=== PATIENT | female | born 1975 | race Caucasian/White ===

== ENCOUNTER 2016-11-13 07:01 | Observation (INO) | payer BC, OTHER ==
--- NOTE | 2016-11-06 17:17 | GHP ---
[f rep st] HISTORY AND PHYSICAL DATE OF ADMISSION: 11/13/2016 ADMITTING DIAGNOSIS: 1. Dysfunctional uterine bleeding. 2. Uterine fibroids. HISTORY OF PRESENT ILLNESS: Patient is a 40-year-old, 3, para 2-0-1-2, who presents with a long history of dysfunctional uterine bleeding. She has had heavy bleeding with clots since May-June of 2016. The patient states her cycles are usually monthly, about 7 days long. Now her cycles are heavier and lasting longer. She does go through a heavy-duty tampon every hour on her heavy days. She has minimal cramping. The patient presented to the office and was seen by the nurse practitioner. The patient had an ultrasound that showed an enlarged uterus at 9 cm with a very small 2 x 3 cm submucosal fibroid, as well as a thickened endometrium at 2 cm. The patient did have an endometrial biopsy which was negative, no hyperplasia or malignancy seen. The patient then saw me on October 23 for a surgical consult. The patient does desire definitive treatment at this time. She has tried medical management in the past, and did not tolerate the side effects. OB HISTORY: In 2007, the patient delivered a viable female infant via C- section. In 2008, she had another and delivered a viable female infant. PERINATAL TECHNICIAN HISTORY: Menarche age 12. Cycles are usually every 28 days x7 days. Denies any exposure to sexually transmitted diseases. Does have a history of abnormal Pap smears and had a LEEP procedure for treatment. PAST MEDICAL HISTORY: Abnormal Pap smears. PAST SURGICAL HISTORY: Breast biopsy 1996, secondary to fibrocystic changes. LEEP procedure. x2. FAMILY HISTORY: Dad with diabetes and hypertension. Maternal grandmother with breast cancer at 85 years of age. Maternal great aunt with breast cancer at age 50. Mother is alive and well. SOCIAL HISTORY: Patient is . Lives with her and their 2 children. She was a smoker and quit smoking in 2006. Denies any illicit drug use. She does drink 6-7 alcoholic beverages per week. She is a tax compliance representative. ALLERGIES: No known drug allergies. MEDICATIONS: None. PHYSICAL EXAMINATION: VITAL SIGNS: On admission, vital signs are stable. Patient is afebrile. GENERAL: The patient is a well-nourished well-developed female, alert, oriented x3. No apparent distress. LUNGS: Clear to auscultation. HEART: Regular rate and rhythm. ABDOMEN: Soft, nontender, nondistended. Active bowel sounds. PELVIC: On bimanual exam, enlarged uterus 8-10 weeks' size, mobile, nontender. Ovaries nontender. No masses palpated. EXTREMITIES: Normal to inspection without calf tenderness or edema. LABORATORY DATA: CBC is pending. ASSESSMENT: Patient is a 40-year-old, 3, para 2-0-1-2 with dysfunctional uterine bleeding and uterine leiomyomata. PLAN: 1. The patient desires definitive treatment at this time. Surgical consents were obtained at preop visit today. Risks, benefits, alternatives were reviewed with the patient including, but not limited to, bleeding, infection, and damage to surrounding organs. The patient is aware of the risks, and wants to proceed with surgery. 2. We discussed the procedure, laparoscopic hysterectomy with removal of bilateral tubes. Discussed the length of the surgery, limitations, n.p.o. status. 3. Antibiotics manager valuation to OR. Patient has no known drug allergies, we will proceed with cefazolin 2 g IV. 4. SCDs for DVT prophylaxis. 5. Surgery is scheduled for 11/13/16 at 0830 am. /[id number]/MODL MTDD
[2016-11-13] MEDS ORDERED: CEFAZOLIN 2 GM/DEXTROSE/100 ML BAG IV ONE (07:44)
[2016-11-13] MEDS ORDERED: LR 1,000 ML IV ONE (07:55)
[2016-11-13] MEDS ORDERED: LIDOCAINE 1% 5 ML SDV ID PRN (07:55)
[2016-11-13] MEDS ORDERED: ceFAZolin 2 GM/DEXTROSE 100 ML IV ONE (08:00)
[2016-11-13] MEDS ORDERED: PROPOFOL/EMULSION 500 MG/50 ML BOTTLE IV ONE ×3 (08:27→10:51)
[2016-11-13] MEDS ORDERED: fentaNYL 100 MCG/2 ML INJ ONE ×3 (08:29→11:38)
[2016-11-13] MEDS ORDERED: BUPIVACAINE/EPI 0.5% 30 ML SDV ONE (08:32)
[2016-11-13] MEDS ORDERED: MIDAZOLAM 2 MG/2 ML VIAL ONE (08:54)
[2016-11-13] MEDS ORDERED: SKIN ADHESIVE (DERMABOND) 1 EACH TP ONE (11:15)
[2016-11-13] MEDS ORDERED: ONDANSETRON 4 MG/2 ML VIAL IVP PRN (11:33)
[2016-11-13] MEDS ORDERED: KETOROLAC 30 MG/1 ML SDV IVP ONE (11:33)
[2016-11-13] MEDS ORDERED: LACTULOSE 20 GM/30 ML UDCUP PO PRN (11:41)
[2016-11-13] MEDS ORDERED: MEPERIDINE 25 MG/ML SYR ONE (11:41)
[2016-11-13] MEDS ORDERED: BISACODYL 10 MG SUPP PR PRN (11:41)
[2016-11-13] MEDS ORDERED: POLYETHYLENE GLYCOL 3350 17 GM PKT PO PRN (11:41)
[2016-11-13] MEDS ORDERED: MAGNESIUM HYDROXIDE 30 ML UDCUP PO PRN (11:41)
[2016-11-13] MEDS ORDERED: LR 1,000 ML IV SCH (12:00)
[2016-11-13] MEDS ORDERED: HYDROmorphONE/DILAUDID 1 MG/ML SYR ONE (12:08)
[2016-11-13] MEDS: IBUPROFEN 600 MG TAB PO SCH ×2 (13:01→17:02)
[2016-11-13] MEDS: OXYCODONE/APAP 5/325 TAB PO PRN ×3 (14:40→20:21)
--- NOTE | 2016-11-13 15:08 | POSTOPPROG ---
Post Op Note Date of Operation: 11/13/16 Surgeon: Harper Stewart Outsole Cementer Machine: Jaylyn Lora Anesthesiologist: Vignesh Luis Anesthesia: GET(General Endotracheal) Pre-op Diagnosis: DUB; Uterine fibroids Post-op Diagnosis: DUB; Uterine fibrids Indication: 40 y/o with long history of DUB who desires definitive treatment Procedure: TLH, BS Findings: Grossly normal-appearing uterus, tubes and ovaries and upper abdomen. Inf/Abcess present in the surg proc area at time of surgery?: No EBL: 50-100 (100cc; IVFs: 1300 cc LR: UO: 150 cc clear urine at the end of procedure) Complications: None Specimen(s): Uterus, b/l fallopian tubes
[2016-11-13] MEDS ORDERED: IBUPROFEN 600 MG TAB PO PRN (17:01)
[2016-11-13] MEDS: KETOROLAC 30 MG/1 ML SDV IVP PRN ×2 (17:08→23:05)
[2016-11-13] MEDS: SENNOSIDES/DOCUSATE SODIUM TAB PO SCH (20:21)
[2016-11-14] MEDS: OXYCODONE/APAP 5/325 TAB PO PRN ×3 (00:17→08:13)
[2016-11-14] MEDS: KETOROLAC 30 MG/1 ML SDV IVP PRN (05:14)
[2016-11-14 05:33] LABS: HEMATOCRIT 33.4 % (38.0-47.0); HEMOGLOBIN 11.1 g/dL (12.6-16.3)
[2016-11-14 08:06] VITALS: BP 98/58; PULSE 66; RESP 16; TEMP 98.7; O2SAT 99
[2016-11-14] MEDS: SENNOSIDES/DOCUSATE SODIUM TAB PO SCH (08:13)
--- NOTE | 2016-11-14 09:19 | SOAPPROG ---
SOAP Progress Note Assessment/Plan: Assessment: 1) s/p TLH, BS secondary to DUB, uterine fibroids POD # 1 - pt is stable 2) Anemia - pt is asymptomatic Plan: Continue routine pot-op care Encourage ambulation and IS Plan for d/c home after pt voids Instructions reviewed with pt Rx given for Percocet, Motrin Cont colace at home Start iron BID Pelvic rest RTC in 2 weeks for incision check 11/14/16 09:20 11/14/16 09:27 Subjective: Pt seen and examined. Doing well with no complaints. Some R shoulder pain noted. Pain is well controlled with Percocet x 2. Pt is OOB, zia regular diet, herring just removed-has not voided yet, and no flatus. Denies any f/c/n/v/CP or SOB. Minimal spotting noted. Objective: Vital Signs Temp Pulse Resp BP Pulse Ox 37.1 C 66 16 98/58 L 99 11/14/16 08:05 11/14/16 08:05 11/14/16 08:05 11/14/16 08:05 11/14/16 08:05 Laboratory Results 11/14/16 05:20 11/13/16 11/14/16 11/15/16 05:59 05:59 05:59 Intake Total 2800 Output Total 1750 Balance 1050 Physical Exam - Physical Exam General Appearance: WD/WN, alert, no apparent distress Respiratory: lungs clear, normal breath sounds Cardiac/Chest: regular rate, rhythm Abdomen: normal bowel sounds, non-tender, soft, distended (non), other ( Laparoscopic incisions-C/D/I with glue) Pelvic Exam: deferred Skin: normal color Neuro/Psych: alert, normal mood/affect, oriented x 3 ICD10 Worksheet Patient Problems: Problems Problem Status Onset DUB (dysfunctional uterine bleeding) Acute Fibroids Acute S/P laparoscopic hysterectomy Acute - ICD10 Problem Qualifiers (1) DUB (dysfunctional uterine bleeding) (2) Fibroids Qualifiers: Uterine leiomyoma location: U (3) S/P laparoscopic hysterectomy
--- NOTE | 2016-11-14 11:38 | GOP ---
[f rep st] OPERATIVE REPORT DATE OF OPERATION: 11/13/2016 SURGEON: Harper Stewart DO GOAT DRIVER: Jaylyn Lora DO. ANESTHESIA: General endotracheal. PREOPERATIVE DIAGNOSIS: 1. Dysfunctional uterine bleeding. 2. Uterine fibroids. POSTOPERATIVE DIAGNOSIS: 1. Dysfunctional uterine bleeding. 2. Uterine fibroids. PROCEDURE PERFORMED: Total laparoscopic hysterectomy, bilateral salpingectomy. FINDINGS: A grossly normal-appearing uterus that sounded to 9 cm. No definitive fibroids were noted. Grossly normal-appearing bilateral tubes and ovaries. Upper abdomen grossly normal appearing. All specimens sent to pathology. SPECIMENS: Uterus, bilateral tubes. ESTIMATED BLOOD LOSS: 100 cc. COMPLICATIONS: None. INTRAVENOUS FLUIDS: 1300 mL LR. URINE OUTPUT: 150 cc of clear urine at the end of the procedure. INDICATIONS: The patient is a 40-year-old 3, para 2-0-1-2, with a long history of abnormal uterine bleeding who desires definitive treatment at this time. DESCRIPTION OF PROCEDURE: The patient was taken to the operating room, where general anesthesia was obtained without difficulty. The patient was then placed in dorsal lithotomy position and prepped and draped in the usual sterile manner. A herring catheter was placed in her bladder. A open-sided speculum was placed in the vagina and a single-toothed tenaculum was used to grasp the anterior lip of the uterine cervix. The uterus was then sounded to 9 cm and dilated with Bianchi dilators. A VCare uterine manipulator was then inserted over the cervix, balloon inflated, to act as a means to manipulate the uterus. All instruments were then removed from the vagina. We turned our attention to the patient's abdomen. At this time, the infraumbilical area was injected with 0.5% Marcaine with epinephrine. A 5 mm infraumbilical skin incision was then made with a knife. The Veress needle was then inserted into the incision very carefully while tenting the abdominal wall. Aspiration was negative. The abdomen was then insufflated with carbon dioxide and pneumoperitoneum was obtained. After adequate insufflation, the Veress needle was removed and a 5 mm trocar was introduced through the infraumbilical incision into the abdominal cavity directly with the laparoscope. There was adequate visualization of the pelvic structures. After injection of more local, another 5 mm skin incision was made in left lower quadrant and a 10 mm skin incision was made in right lower quadrant and atraumatic trocars were placed. Evaluation of the pelvis revealed the findings noted above. The right fimbria was grasped with an atraumatic grasper and the LigaSure was used to to dissect along the mesosalpinx. The fallopian tube was then removed on this side. Hemostasis was noted. The same procedure was done on the other side and the left tube was removed. Again, hemostasis was noted. The round ligaments were then grasped and coagulated with the LigaSure and transected without difficulty. The dissection was carried down to the anterior and posterior leaves of the broad ligament and to the bladder flap which was created anteriorly. The uterine vessels were then cauterized multiple times and transected with LigaSure until hemostasis was assured. At this time, the entire colpotomy ring was identified and developed. Attention was then turned to the colpotomy. This was done using a J-hook, posterior to anterior, circumferentially along the ring. Hemostasis was noted. The uterus was removed through the vagina without difficulty. A sponge glove was placed in the vagina in order to maintain pneumoperitoneum. We visualized the vaginal cuff and it did appear hemostatic at this time. Using a running O Vicryl V-Loc suture, the vaginal cuff was closed right to left. Hemostasis was assured. The pelvis was then irrigated with copious amounts of normal saline. There was no bleeding noted from any of the pedicles or the vaginal cuff. Both the left and right ureters were visualized and peristalsis was confirmed. Hemalatha was placed on the vaginal cuff for further hemostasis. The laparoscope was then removed and all gas was allowed to escape from the abdomen. The trocar sheaths were then removed as well. The two 5 mm skin incisions were closed with Dermabond, and the fascia was closed with 0 Vicryl, and the skin was closed with Dermabond. No complications. The patient tolerated procedure well. All instrument, sponge, and needle counts were correct x2. The patient was then taken out of dorsal lithotomy position, awakened, and taken to the recovery room in stable condition. /[id number]/MODL and [id number], 11/13/16 SANTO
== END 2016-11-14 11:05 | disposition home or self-care (01) ==
LOC: FSGY 07:01 → F3E 11:34 → FOB 12:51
PROVIDERS: ADMIT Obstetrics & Gynecology; ATTEND Obstetrics & Gynecology
PROC: 0UT74ZZ Resection of Bilateral Fallopian Tubes, Percutaneous Endoscopic Approach (ICD-10-PCS; principal; 2016-11-13 08:30)
PROC: 0UT9FZZ Resection of Uterus, Via Natural or Artificial Opening With Percutaneous Endoscopic Assistance (ICD-10-PCS; principal; 2016-11-13 08:30)
DX: N93.8 Other specified abnormal uterine and vaginal bleeding (principal); D25.0 Submucous leiomyoma of uterus; D62 Acute posthemorrhagic anemia; Z80.3 Family history of malignant neoplasm of breast; Z87.891 Personal history of nicotine dependence; M25.511 Pain in right shoulder
CPT/HCPCS: 58571; G0378; J0690; J1170; J1885; J2250; J2704; J3010